=== PATIENT | female | born 2000 | race Caucasian/White ===

== ENCOUNTER 2018-04-08 07:00 | Day surgery (SDC) | payer BC, SELFPAY ==
[2018-04-08 07:16] VITALS: BP 115/75; PULSE 82; RESP 18; TEMP 36.4; O2SAT 96
--- NOTE | 2018-04-08 07:29 | W.PM.DSUDISC ---
Discharge Plan Disposition Patient Disposition: HOME Condition: Good Discharge Details Reason For Visit: or Attending Provider: Akin Davis Primary Care Provider: Sumit Ulloa Home Meds and New Rx's Prescriptions: No Action norgestimate-ethinyl estradiol [Sprintec (28)] 1 EACH tablet 1 tab-cap PO DAILY Qty: 3 RF: 3 diphenhydramine HCl 25 MG capsule 25 mg PO PRN PRNRF: 0 pantoprazole 40 mg Tablet,Delayed Release (Dr/Ec) 1 tab PO DAILY RF: 0 Flovent HFA 44 mcg/actuation Hfa Aerosol Inhaler 1 puff Inhalation BID RF: 0 albuterol sulfate [ProAir HFA] 90 mcg/actuation Hfa Aerosol Inhaler 2 puff Inhalation PRN PRNRF: 0 Discharge Instructions Activity:: Activity as Tolerated Diet:: As Tolerated DS: Diagnosis Discharge Diagnosis (1) Mucocele of lip: Status: Chronic
--- NOTE | 2018-04-08 07:45 | MUCOCELE_PTH ---
PATIENT: Sandy Petersen LOC: [facility] U#:[id number] AGE/SX: 18/F ROOM: RE04/08/[address]: Akin Davis DO : 2000 BED: DIS: 04/08/2018 SPEC #: [id number] RECD: 04/08/18 12:39 STATUS: DHARA REQ #: [id number] MARGAUX: 04/08/18 07:[address]: Akin Davis DEPT: Surgical Specimen RECD BY: Louisa Oro ENTERED: 04/08/18 12:40 SP TYPE: MUCOCELE OTHR DR: Sumit Ulloa Tissues: 1 - MUCOCELE Procedures: GROSS AND MICRO LEVEL 3 Comments: [id number]
--- NOTE | 2018-04-08 11:35 | ROE_ITS ---
DATE OF PROCEDURE: April 08, 2018 PREOPERATIVE DIAGNOSIS: Lower lip subcutaneous mass. POSTOPERATIVE DIAGNOSIS: Same; likely mucocele. SURGEON: Akin Davis D.O. ANESTHESIA: Local with 3 cc's of 1% Lidocaine with 1:100,000 epinephrine. COMPLICATIONS: None. CONDITION: Patient tolerated the procedure well. SPECIMEN: Lower lip mass excised with associated minor salivary gland; sent to Pathology to rule out any autoimmune process. INDICATIONS FOR PROCEDURE: This is a 18-year-old female who presents with a history of slow growing mass of her lower lip. Decision was made forth for surgery. She is home from [facility]. Consent was placed in the chart. PROCEDURE: Patient was brought back to the operating suite, placed supine on the operating table, gi marilynn 3 cc's of 1% Lidocaine with 1:100,000 epinephrine for local administration. A time-out was taken to confirm proper patient and procedure. Preoperative markings along the lower lip margin on the bu ccal mucosa was marked. A 15 blade scalpel was used to excise an overlying lip mucosa. Dissection i nto a mucoid fluid-filled cyst-like structure was performed. This was isolated from the surrounding obicularis kerry. Hemostasis was controlled with electrocautery. Total excision was 1.2 cm. A doubl e-layer closure was performed with #4-0 Monocryl, followed by #4-0 non-dyed Vicryl. The patient was stable to recovery. Instructions were reviewed with the patient and her mother. She will follow-up as needed.
== END 2018-04-08 08:20 | disposition home or self-care (01) ==
PROVIDERS: PCP Internal Medicine; Visit Provider Otolaryngology Otolaryngology/Facial Plastic Surgery
PROC: 0HB1XZZ Excision of Face Skin, External Approach (ICD-10-PCS; CPT 11442; principal; 2018-04-08 08:30)
DX: K13.79 Other lesions of oral mucosa (principal)
CPT/HCPCS: 11442; 12051; 88304

== ENCOUNTER 2018-08-16 16:46 | Outpatient (REF) | payer BC, SELFPAY ==
[2018-08-19 15:08] LABS: Chlamydia Result Negative; GC Result Negative; Specimen Description URINE
== END 2018-08-16 17:06 ==
LOC: LBN 16:46
PROVIDERS: PCP Internal Medicine; Visit Provider Nurse Practitioner Family
DX: Z11.3 Encounter for screening for infections with a predominantly sexual mode of transmission (principal)
CPT/HCPCS: 87491; 87591

== ENCOUNTER 2019-08-18 12:20 | Outpatient (REF) | payer BC, SELFPAY ==
--- NOTE | 2019-08-18 09:15 | PAPFT_PTH ---
PATIENT: Sandy Petersen LOC: [facility] U#:[id number] AGE/SX: 19/F ROOM: RE08/18/[address]: JERAMIE Watkins : 2000 BED: DIS: 08/18/2019 SPEC #: [id number] RECD: 08/18/19 13:03 STATUS: DHARA REZayra #: [id number] MARGAUX: 08/18/19 09:[address]: Jacquelyn Bullock DEPT: [facility] Cytology RECD BY: Louisa Oro ENTERED: 08/18/19 13:04 SP TYPE: PAPFT OTHR DR: Sumit lUloa Tissues: 1 - CX/ENDOCX FOR PAP SMEARS Procedures: PAP THIN PREP/[facility] Screening Comments: [id number]
[2019-08-19 14:59] LABS: Chlamydia Result Negative (Negative); GC Result Negative (Negative)
== END 2019-08-18 12:40 ==
LOC: LBN 12:20
PROVIDERS: PCP Internal Medicine; Visit Provider Nurse Practitioner Family
DX: Z11.3 Encounter for screening for infections with a predominantly sexual mode of transmission (principal); Z12.4 Encounter for screening for malignant neoplasm of cervix
CPT/HCPCS: 87491; 87591; 88142

== ENCOUNTER 2023-09-20 17:07 | Outpatient (REF) | payer OTHER, SELFPAY ==
--- NOTE | 2023-09-20 14:45 | PAPFT_PTH ---
PATIENT: Sandy Petersen LOC: [facility] U#:[id number] AGE/SX: 23/F ROOM: RE09/20/[address]: JERAMIE Mena : 2000 BED: DIS: 09/20/2023 SPEC #: [id number] RECD: 09/21/23 12:55 STATUS: DHARA REZayra #: [id number] MARGAUX: 09/20/23 14:[address]: Jeanne Camarena DEPT: [facility] Cytology RECD BY: Louisa Oro Tissues: 1 - CX/ENDOCX FOR PAP SMEARS Procedures: PAP THIN PREP/[facility] Screening Comments: [id number] (CHLAMYDIA/GC)
[2023-09-24 12:06] LABS: Chlamydia Result Negative (Negative); GC Result Negative (Negative)
== END 2023-09-20 17:08 | disposition home or self-care (01) ==
LOC: LBN 17:07
PROVIDERS: PCP Nurse Practitioner Family; Visit Provider Nurse Practitioner Family
DX: Z12.4 Encounter for screening for malignant neoplasm of cervix (principal)
CPT/HCPCS: 87491; 87591; 88142

== ENCOUNTER 2023-11-29 03:56 | Outpatient (CLI) | payer OTHER, SELFPAY ==
[2023-11-29 12:52] LABS: HCT 42.9 % (36.0-46.0); MCH 29.7 pg (27.0-33.0); MCHC 32.6 % (32.0-36.0); MCV 91 fL (80-95); MPV 8.9 fL (8.0-11.0); Platelet Count 290 10^3/uL (130-400); RBC 4.71 10^6/uL (3.93-5.22); RDW 12.7 % (11.7-14.6); RDW-SD 42.1 fL; WBC 5.21 10^3/uL (4.4-10.8)
[2023-11-29 13:38] LABS: Anion Gap 10.9 mmol/L (3-11); BUN 10 mg/dL (7-18); CO2 23.1 mmol/L (21.0-32.0); CREATININE 0.9 mg/dL (0.55-1.02); Calcium 9.3 mg/dL (8.5-10.1); Calculated LDL 88 mg/dL (<100); Chloride 109 mmol/L (98-107); Cholesterol 174 mg/dL (<200); Estimated GFR 90.98 (mL/min/1.73m2); Glucose 84 mg/dL (74-106); HDL Cholesterol 65 mg/dL (40-60); Potassium 3.8 mmol/L (3.5-5.1); Sodium 143 mmol/L (136-145); TSH (W/Ref FT4) 1.87 uIU/mL (0.36-3.74); Triglyceride 106 mg/dL (<150)
[2023-11-29 13:43] LABS: Hemoglobin A1C 4.8 % (<5.7)
== END 2023-11-29 03:57 | disposition home or self-care (01) ==
LOC: LOS 03:56
PROVIDERS: PCP Nurse Practitioner Family; Visit Provider Nurse Practitioner Family
DX: Z00.00 Encounter for general adult medical examination without abnormal findings (principal)
CPT/HCPCS: 36415; 80048; 80061; 85027; 83036; 84443